=== PATIENT | male | born 1940 | race Caucasian/White ===

== ENCOUNTER 2017-05-20 19:00 | Inpatient (IN) | payer OTHER ==
[~2017-05-20] VITALS: Ht 170.2 cm; Wt 73.2 kg
[2017-05-20 20:02] LABS: BASOPHIL COUNT 0.1 K/uL (0-0.1); EOSINOPHIL (%) 2.6 % (0-5); EOSINOPHIL COUNT 0.2 K/uL (0-0.3); HEMATOCRIT 38.7 % (38.0-50.0); IMMATURE GRANULOCYTE (%) 0.5 % (0.0-0.7); INSTRUMENT ABS NEUTROPHIL CT 5.6 K/uL; LYMPHOCYTE COUNT 1.3 K/uL (1.0-2.8); MCH 29.4 PG (29.0-34.0); MCHC 32.3 G/DL (30.0-36.0); MCV 91.1 FL (86-99); MEAN PLAT.VOLUME 10.1 uM^3 (9.0-12.4); MONOCYTE (%) 7.8 % (3-12); MONOCYTE COUNT 0.6 K/uL (0-0.8); NEUTROPHIL (%) 72.2 % (45-76); NEUTROPHIL COUNT 5.6 K/uL (1.8-6.4); PLATELET COUNT 186 K/uL (156-360); RBC DIS.WIDTH-CV 13.2 % (11.8-14.6); RBC DIS.WIDTH-SD 43.2 % (39-53); RED BLOOD COUNT 4.25 M/uL (4.00-5.50); WHITE BLOOD COUNT 7.8 K/uL (4.1-10.2)
[2017-05-20 20:12] LABS: ANION GAP 8 MEQ/L (2-14); CHLORIDE 106 MEQ/L (99-109); POTASSIUM 4.3 MEQ/L (3.7-5.4); SAMPLE HEMOLYSIS CHECK 0; SAMPLE ICTERIC CHECK 0; SAMPLE LIPEMIA CHECK 0; SODIUM 140 MEQ/L (136-147)
[2017-05-20 20:16] LABS: INTER. NORMALIZED RATIO 1.1; PROTHROMBIN TIME 11.9 SEC (10.2-12.9)
[2017-05-20 20:18] LABS: GFR ESTIMATE (CALCULATED) > 59 mL/min/; GLUCOSE 176 mg/dL (70-99); UREA NITROGEN (BUN) 26 mg/dL (9-23)
[2017-05-21 02:18] LABS: HEMATOCRIT 31.8 % (38.0-50.0); MCHC 33.3 G/DL (30.0-36.0); MCV 90.1 FL (86-99); MEAN PLAT.VOLUME 9.5 uM^3 (9.0-12.4); PLATELET COUNT 164 K/uL (156-360); RBC DIS.WIDTH-CV 13.1 % (11.8-14.6); RBC DIS.WIDTH-SD 43.3 % (39-53); RED BLOOD COUNT 3.53 M/uL (4.00-5.50); WHITE BLOOD COUNT 9.2 K/uL (4.1-10.2)
[2017-05-21 08:04] LABS: HEMATOCRIT 35.3 % (38.0-50.0); MCV 89.4 FL (86-99)
[2017-05-21] MEDS ORDERED: OMEPRAZOLE20 MG PO (11:39)
[2017-05-21] MEDS ORDERED: METOPROLOL SUC200 MG PO (11:40)
[2017-05-21] MEDS ORDERED: AMLODIPINE BES2.5 MG PO (11:41)
[2017-05-21] MEDS ORDERED: ASPIR-LOW81 MG PO (11:41)
[2017-05-21] MEDS ORDERED: TRIAMTERENE-HC1 EAC1 PO (11:41)
[2017-05-21] MEDS ORDERED: LOSARTAN POTASS50 MG PO (11:41)
[2017-05-21] MEDS ORDERED: IRON325 M1 PO (11:42)
[2017-05-21] MEDS ORDERED: SYSTANE BALANCE10 ML BOTH EYES (11:43)
[2017-05-21] MEDS ORDERED: FIBER TABS625 MG PO (11:43)
[2017-05-21 13:44] LABS: HEMATOCRIT 33.7 % (38.0-50.0); MCV 89.6 FL (86-99)
[2017-05-21 16:03] VITALS: BP 148/83
[2017-05-21 19:15] LABS: MCV 90.9 FL (86-99)
[2017-05-21 19:53] VITALS: BP 145/80
[2017-05-21 23:37] VITALS: BP 133/76
[2017-05-22 01:05] LABS: HEMATOCRIT 28.4 % (38.0-50.0)
[2017-05-22 03:45] VITALS: BP 133/71
[2017-05-22 06:00] LABS: EOSINOPHIL (%) 1.9 % (0-5); EOSINOPHIL COUNT 0.1 K/uL (0-0.3); HEMATOCRIT 29.7 % (38.0-50.0); IMMATURE GRANULOCYTE (%) 0.6 % (0.0-0.7); INSTRUMENT ABS NEUTROPHIL CT 4.5 K/uL; MCH 31.1 PG (29.0-34.0); MCV 91.4 FL (86-99); MEAN PLAT.VOLUME 9.8 uM^3 (9.0-12.4); MONOCYTE COUNT 0.6 K/uL (0-0.8); NEUTROPHIL (%) 71.4 % (45-76); NEUTROPHIL COUNT 4.5 K/uL (1.8-6.4); PLATELET COUNT 142 K/uL (156-360); RBC DIS.WIDTH-CV 13.2 % (11.8-14.6); RBC DIS.WIDTH-SD 43.4 % (39-53); RED BLOOD COUNT 3.25 M/uL (4.00-5.50); WHITE BLOOD COUNT 6.2 K/uL (4.1-10.2)
[2017-05-22 06:31] LABS: ANION GAP 5 MEQ/L (2-14); CHLORIDE 110 MEQ/L (99-109); GFR ESTIMATE (CALCULATED) > 59 mL/min/; POTASSIUM 3.8 MEQ/L (3.7-5.4); SAMPLE HEMOLYSIS CHECK 0; SAMPLE ICTERIC CHECK 0; SAMPLE LIPEMIA CHECK 0; SODIUM 142 MEQ/L (136-147); UREA NITROGEN (BUN) 12 mg/dL (9-23)
[2017-05-22 06:32] LABS: GLUCOSE 89 mg/dL (70-99)
[2017-05-22 07:46] VITALS: BP 171/93
== END 2017-05-22 13:18 | disposition home or self-care (01) | DRG 379 ==
LOC: EME 19:00 → EDOF 05-21 01:36 → ENRESERV 05-21 01:37 → 5SOUTH 05-21 04:22 → EDOF 05-21 04:22 → ENRESERV 05-21 04:25 → 5SOUTH 05-21 13:58
PROVIDERS: Emergency Medicine; Hospitalist; Internal Medicine Gastroenterology
PROC: 0DJD8ZZ Inspection of Lower Intestinal Tract, Via Natural or Artificial Opening Endoscopic (ICD-10-PCS; principal; 2017-05-22)
DX: K57.31 Diverticulosis of large intestine without perforation or abscess with bleeding (principal); I10 Essential (primary) hypertension; M19.90 Unspecified osteoarthritis, unspecified site; K21.9 Gastro-esophageal reflux disease without esophagitis; R00.0 Tachycardia, unspecified; Z96.651 Presence of right artificial knee joint; Z79.82 Long term (current) use of aspirin; Z90.49 Acquired absence of other specified parts of digestive tract
CPT/HCPCS: 74177; 80048; 85014; 85018; 85025; 85025 91; 85027; 85610; 86850; 86900; 86901; 86920; 99281; 99285; C9113; J2405; J7030; J7040; S0030

== ENCOUNTER 2017-12-23 05:05 | Emergency (ER) | payer OTHER ==
[~2017-12-23] VITALS: Ht 170.2 cm; Wt 73.0 kg
[~2017-12-23 05:05] MED LIST: AMLODIPINE BES2.5 MG PO; ASPIR-LOW81 MG PO; FIBER TABS625 MG PO; IRON325 M1 PO; LOSARTAN POTASS50 MG PO; METOPROLOL SUC200 MG PO; OMEPRAZOLE20 MG PO; SYSTANE BALANCE10 ML BOTH EYES; TRIAMTERENE-HC1 EAC1 PO
[2017-12-23 05:44] LABS: HEMATOCRIT 44.2 % (38.0-50.0); HEMOGLOBIN 14.9 G/DL (12.5-16.6); MCHC 33.7 G/DL (30.0-36.0); MCV 89.1 FL (86-99); PLATELET COUNT 237 K/uL (156-360); RBC DIS.WIDTH-CV 13.5 % (11.8-14.6); RBC DIS.WIDTH-SD 43.8 % (39-53); RED BLOOD COUNT 4.96 M/uL (4.00-5.50); WHITE BLOOD COUNT 20.6 K/uL (4.1-10.2)
[2017-12-23 05:51] LABS: CHLORIDE 102 mEq/L (99-109); POTASSIUM 4.2 mEq/L (3.7-5.4); SODIUM 137 mEq/L (136-147)
[2017-12-23 05:53] LABS: GLUCOSE 192 mg/dL (70-99)
[2017-12-23 05:57] LABS: CREATININE 1.4 mg/dL (0.6-1.3); GFR ESTIMATE (CALCULATED) 52 mL/min/ (58.99-99999)
[2017-12-23 05:58] LABS: UREA NITROGEN (BUN) 29 mg/dL (9-23)
[2017-12-23 07:16] LABS: APPEARANCE CLEAR ((CLEAR)); BILIRUBIN NEGATIVE; BLOOD LARGE; COLOR YELLOW ((YELLOW)); GLUCOSE (STRIP) NEGATIVE; KETONES NEGATIVE; LEUKOCYTES NEGATIVE; NITRITE NEGATIVE; PROTEIN (STRIP) 30; SPECIFIC GRAVITY 1.025 (1.000-1.030); UROBILINOGEN 0.2 MG/DL (0.2-1.0)
[2017-12-23 07:22] LABS: BACTERIA NONE SEEN /HPF; EPITHELIAL CELLS RARE /HPF; MUCUS TRACE /LPF; RED BLOOD CELLS TNTC /HPF (0-5); UCUL ADDED? YES; WHITE BLOOD CELLS 0-5 /HPF (0-5)
[2017-12-23] MEDS ORDERED: ZOFRAN ODT4 MG PO (07:36)
[2017-12-23] MEDS ORDERED: MOTRIN600 MG PO (07:36)
[2017-12-23] MEDS ORDERED: PERCOCET 5/31 TABLET PO (07:36)
[2017-12-23 08:47] VITALS: BP 145/77
== END 2017-12-23 08:56 | disposition home or self-care (01) ==
LOC: EME 05:05
DX: N20.0 Calculus of kidney (principal); Z87.442 Personal history of urinary calculi; K21.9 Gastro-esophageal reflux disease without esophagitis; I10 Essential (primary) hypertension; Z96.651 Presence of right artificial knee joint; Z79.82 Long term (current) use of aspirin
CPT/HCPCS: 74176; 80048; 81003; 85027; 87086; 99281; 99285; J1885; J2405; J7030

== ENCOUNTER 2017-12-25 16:53 | Inpatient (IN) | payer OTHER ==
[~2017-12-25] VITALS: Ht 170.2 cm; Wt 74.3 kg
[~2017-12-25 16:53] MED LIST changes: +MOTRIN600 MG PO; +PERCOCET 5/31 TABLET PO; +ZOFRAN ODT4 MG PO
[2017-12-25 18:09] LABS: HEMATOCRIT 37.4 % (38.0-50.0); HEMOGLOBIN 12.3 G/DL (12.5-16.6); MCH 29.8 PG (29.0-34.0); MCHC 32.9 G/DL (30.0-36.0); MCV 90.6 FL (86-99); PLATELET COUNT 169 K/uL (156-360); RBC DIS.WIDTH-CV 13.6 % (11.8-14.6); RBC DIS.WIDTH-SD 45.1 % (39-53); RED BLOOD COUNT 4.13 M/uL (4.00-5.50); WHITE BLOOD COUNT 20.3 K/uL (4.1-10.2)
[2017-12-25 18:11] LABS: APPEARANCE CLEAR ((CLEAR)); BILIRUBIN NEGATIVE; BLOOD SMALL; COLOR YELLOW ((YELLOW)); GLUCOSE (STRIP) NEGATIVE; KETONES NEGATIVE; LEUKOCYTES NEGATIVE; NITRITE NEGATIVE; PROTEIN (STRIP) NEGATIVE; SPECIFIC GRAVITY 1.017 (1.000-1.030)
[2017-12-25 18:17] LABS: BACTERIA RARE /HPF; EPITHELIAL CELLS RARE /HPF; MUCUS TRACE /LPF; RED BLOOD CELLS 0-5 /HPF (0-5); UCUL ADDED? NO; WHITE BLOOD CELLS 0-5 /HPF (0-5)
[2017-12-25 18:22] LABS: CHLORIDE 101 mEq/L (99-109); POTASSIUM 4.7 mEq/L (3.7-5.4); SODIUM 135 mEq/L (136-147)
[2017-12-25 18:24] LABS: GLUCOSE 142 mg/dL (70-99)
[2017-12-25 18:28] LABS: CREATININE 1.7 mg/dL (0.6-1.3); GFR ESTIMATE (CALCULATED) 42 mL/min/ (58.99-99999)
[2017-12-25 18:29] LABS: UREA NITROGEN (BUN) 32 mg/dL (9-23)
[2017-12-26] VITALS (7 sets, daily range): BP systolic 118–186; BP diastolic 65–88
[2017-12-26 06:13] LABS: HEMATOCRIT 35.7 % (38.0-50.0); HEMOGLOBIN 11.6 G/DL (12.5-16.6); MCH 29.1 PG (29.0-34.0); MCHC 32.5 G/DL (30.0-36.0); MCV 89.5 FL (86-99); PLATELET COUNT 170 K/uL (156-360); RBC DIS.WIDTH-CV 13.6 % (11.8-14.6); RBC DIS.WIDTH-SD 44.6 % (39-53); RED BLOOD COUNT 3.99 M/uL (4.00-5.50); WHITE BLOOD COUNT 18.6 K/uL (4.1-10.2)
[2017-12-26 06:47] LABS: ALBUMIN 3.3 G/DL (3.2-4.8); CHLORIDE 104 MEQ/L (99-109); CREATININE 1.5 MG/DL (0.6-1.3); GFR ESTIMATE (CALCULATED) 48 mL/min/ (58.99-99999); GLUCOSE 137 mg/dL (70-99); PHOSPHORUS 2.4 mg/dL (2.5-4.9); POTASSIUM 4.4 MEQ/L (3.7-5.4); SODIUM 134 MEQ/L (136-147); UREA NITROGEN (BUN) 27 mg/dL (9-23)
[2017-12-27 04:13] VITALS: BP 133/63
[2017-12-27 08:01] VITALS: BP 158/76
[2017-12-27 16:30] VITALS: BP 153/74
[2017-12-27 20:27] VITALS: BP 158/77
[2017-12-27 23:42] VITALS: BP 133/69
[2017-12-28 04:40] VITALS: BP 134/74
[2017-12-28 06:13] LABS: BASOPHIL (%) 0.3 % (0-1); EOSINOPHIL (%) 0.7 % (0-5); EOSINOPHIL COUNT 0.1 K/uL (0-0.3); HEMATOCRIT 33.8 % (38.0-50.0); HEMOGLOBIN 11.2 G/DL (12.5-16.6); IMMATURE GRANULOCYTE (%) 0.3 % (0.0-0.7); LYMPHOCYTE (%) 5.8 % (15-42); LYMPHOCYTE COUNT 0.5 K/uL (1.0-2.8); MCH 29.8 PG (29.0-34.0); MCHC 33.1 G/DL (30.0-36.0); MCV 89.9 FL (86-99); MONOCYTE (%) 7.5 % (3-12); MONOCYTE COUNT 0.7 K/uL (0-0.8); NEUTROPHIL (%) 85.4 % (45-76); NEUTROPHIL COUNT 7.8 K/uL (1.8-6.4); PLATELET COUNT 169 K/uL (156-360); RBC DIS.WIDTH-CV 13.8 % (11.8-14.6); RBC DIS.WIDTH-SD 45.1 % (39-53); RED BLOOD COUNT 3.76 M/uL (4.00-5.50); WHITE BLOOD COUNT 9.1 K/uL (4.1-10.2)
[2017-12-28 06:38] LABS: CHLORIDE 108 MEQ/L (99-109); CREATININE 1.1 MG/DL (0.6-1.3); GFR ESTIMATE (CALCULATED) > 59 mL/min/ (58.99-99999); GLUCOSE 106 mg/dL (70-99); POTASSIUM 4.6 MEQ/L (3.7-5.4); SODIUM 138 MEQ/L (136-147); UREA NITROGEN (BUN) 20 mg/dL (9-23)
[2017-12-28 08:07] VITALS: BP 172/84
[2017-12-28] MEDS ORDERED: NEUTRA-PHOS,1 PACKET PO (09:33)
[2017-12-28 11:55] VITALS: BP 159/77
== END 2017-12-28 13:25 | disposition home or self-care (01) | DRG 669 ==
LOC: EME 16:53 → 3EAST 23:14 → EDOF 23:14 → ENRESERV 23:16 → 3EAST 12-26 00:31
PROVIDERS: Internal Medicine
DX: N17.9 Acute kidney failure, unspecified (principal); N20.1 Calculus of ureter; N43.3 Hydrocele, unspecified; N13.6 Pyonephrosis; I10 Essential (primary) hypertension; K21.9 Gastro-esophageal reflux disease without esophagitis; E83.39 Other disorders of phosphorus metabolism; Z87.442 Personal history of urinary calculi; Z96.651 Presence of right artificial knee joint
CPT/HCPCS: 74018; 74176; 74420; 80048; 80069; 81003; 83605; 85025; 85027; 87040; 87086; 99281; 99285; C1758; C1769; C2625; J0692; J0696; J1170; J1644; J1885; J2405; J3010; J7030